=== PATIENT | male | born 1975 | race Caucasian/White ===

== ENCOUNTER 2021-12-23 10:53 | Outpatient (CLI) | payer SELFPAY, OTHER ==
--- NOTE | 2021-12-23 10:56 | MRI_ITS ---
STUDY: MRI LUMBAR SPINE WITHOUT CONTRAST REASON FOR EXAM: Male, 46 years old. Pain TECHNIQUE: Standardized fat and water weighted pulse sequences were obtained in the sagittal and axial planes. COMPARISON: X-ray 12/12/2021 FINDINGS: T12-L1: Normal endplates. Normal disc height, hydration and morphology. Normal bilateral facet joints. Normal central canal and bilateral lateral recesses. Normal bilateral intervertebral neural foramina. Normal lumbar lordosis. Mild levoscoliosis centered at L2. Normal conus medullaris that terminates at the T12. Slitlike appearance to the neural foramina are suggestive of congenital spinal stenosis (short pedicles). L1-2: Mild bilobed disc protrusion produces mild spinal stenosis and mild bilateral neural foraminal stenosis. L2-3: Mild bilateral facet hypertrophy and ligament flavum hypertrophy. 2 mm retrolisthesis of L2 on L3 with a mild broad disc protrusion with central annular tear produces moderate spinal stenosis with moderate bilateral lateral recess stenosis with abutment of the L3 nerve roots bilaterally and mild bilateral neural foraminal stenosis. L3-4: Mild broad disc protrusion produces mild spinal stenosis and mild bilateral neural foraminal stenosis. L4-5: Mild broad disc protrusion produces mild spinal stenosis, mild right neural foraminal stenosis and moderate left neural foraminal stenosis. L5-S1: Moderate sized central right paracentral disc protrusion produces moderate spinal stenosis with moderate lateral recess stenosis with abutment of the right S1 nerve root and mild bilateral neural foraminal stenosis. Normal visualized sacral ala. Normal visualized paraspinous soft tissue structures. MRI/Spine Lumbar (Routine) IMPRESSION: 1. 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 2. Mild levoscoliosis with degenerative disc disease as described above. Electronically Signed: Neeraj Hui MD at 12:16 EST ,
== END 2021-12-23 23:59 | disposition home or self-care (01) ==
PROVIDERS: PCP Family Medicine; Referring Provider Orthopaedic Surgery; Visit Provider Orthopaedic Surgery
DX: M51.27 Other intervertebral disc displacement, lumbosacral region (principal); R52 Pain, unspecified
CPT/HCPCS: 72148

== ENCOUNTER → 2022-06-07 | Outpatient (CLI) | payer SELFPAY, OTHER ==
--- NOTE | 2022-06-07 13:59 | MRI_ITS ---
STUDY: MRI LUMBAR SPINE WITH AND WITHOUT CONTRAST REASON FOR EXAM: Male, 46 years old. New onset of LEFT buttock and leg pain, prior surgery 2018 TECHNIQUE: Standardized fat and water weighted pulse sequences were obtained in the sagittal and axial planes. 20ml DOtarem via IV was administered for the contrast portion of the examination. COMPARISON: FINDINGS: T12-L1: Normal endplates. Normal disc height, hydration and morphology. Normal bilateral facet joints. Normal central canal and bilateral lateral recesses. Normal bilateral intervertebral neural foramina. Normal lumbar lordosis. There is no substantial scoliosis. Normal conus medullaris that terminates at the T12/L1. L1-2: No change in the mild bilobed disc protrusion which produces mild spinal stenosis and mild bilateral neural foraminal stenosis. L2-3: No change in the moderate broad disc protrusion which produces moderate spinal stenosis with moderate bilateral lateral recess stenosis with abutment of the L3 nerve roots bilaterally and mild bilateral neural foraminal stenosis. L3-4: No change in the mild broad disc protrusion which produces mild spinal stenosis and mild bilateral neural foraminal stenosis. L4-5: Status post left laminectomy. No change in the mild broad disc protrusion which produces mild spinal stenosis, mild right neural foraminal stenosis and moderate left neural foraminal stenosis with abutment of the left L4 nerve root laterally.. L5-S1: No change in the moderate broad disc protrusion asymmetric to the right which produces mild spinal stenosis with mild right lateral recess stenosis and mild bilateral neural foraminal stenosis. Normal visualized sacral ala. Normal visualized paraspinous soft tissue structures. There is no demonstrated abnormal enhancement. MRI/Spine Lumbar W/WO Contrast IMPRESSION: No change from 12/23/2021. Electronically Signed: Neeraj Hui MD at 15:35 EDT ,
== END | disposition home or self-care (01) ==
LOC: MRI 13:59
PROVIDERS: PCP Family Medicine; Visit Provider Orthopaedic Surgery
DX: M51.27 Other intervertebral disc displacement, lumbosacral region (principal)
CPT/HCPCS: 72158; A9575

== ENCOUNTER 2022-06-13 08:11 | Inpatient (IN) | payer OTHER, SELFPAY ==
--- NOTE | 2022-06-05 14:08 | EKG12_ITS ---
Test Reason : PRE-OP Blood Pressure : / mmHG Vent. Rate : 076 BPM Atrial Rate : 076 BPM P-R Int : 162 ms QRS Dur : 110 ms QT Int : 384 ms P-R-T Axes : 046 036 031 degrees QTc Int : 432 ms Normal sinus rhythm Normal ECG Confirmed by DANIEL CARDOZO MD ([id number]), clinical editor VIRI TAPIA ([id number]) on 06/06/2022 10:45:04 AM Referred By: PRASHANT Confirmed By:DANIEL CARDOZO MD
[2022-06-05 15:04] LABS: Absolute Lymphocyte Count 1.27 X10^3/uL (0.83-4.51); Basophil# 0.03 X10^3/uL; Basophil% 0.5 % (0-1); Eosinophil# 0.15 X10^3/uL; Eosinophils% 2.6 % (0-5); Hematocrit 38.1 % (40-54); Hemoglobin 12.7 g/dL (13.0-16.5); Lymphocyte # 1.27 X10^3/ul (0.83-4.51); Lymphocyte % 21.7 % (19-41); Mean Corp Hgb Conc 33.3 g/dL (32-36); Mean Corpuscular Hgb 29.3 pg (27.0-32.0); Mean Corpuscular Volume 87.8 fL (80-94); Mean Platelet Vol. 10.6 fl (6.2-12.0); Monocyte# 0.35 X10^3/uL; NRBC Flagged by Analyzer 0 % (0-5); Neutrophil # 4.03 X10^3/uL (2.7-7.7); Neutrophil % 68.9 % (47-70); Platelet Count 186 K/mm3 (150-450); RBC Distribution Width CV 11.9 % (11.6-14.6); RBC Distribution Width SD 38.1 fl (35.1-43.9); Red Blood Count 4.34 M/mm3 (4.6-6.2); White Blood Count 5.9 K/mm3 (4.4-11.0)
[2022-06-05 15:49] LABS: Anion Gap 5 (5-15); BUN 15 mg/dL (7-18); Calcium,Total 9.1 mg/dL (8.5-10.1); Chloride 108 mmol/L (98-107); EST Glomerular Filtration Rate 85 mL/min (>60); Est Glom Filt Rate - Afr Amer 103 mL/min (>60); Glucose 126 mg/dL (74-106); Potassium 3.7 mmol/L (3.5-5.1); Sodium Level 141 mmol/L (136-145)
[2022-06-06 09:08] LABS: HIV - WCH Non-Reactive (Nonreactive); Hepatitis B Surface Antibody Non-Reactive
[2022-06-06 09:51] LABS: Hepatitis C Antibody Nonreactive (Nonreactive)
[2022-06-08 12:59] LABS: Hepatitis A AB, Total Negative (Negative)
[2022-06-13] VITALS (14 sets, daily range): BP systolic 119–141; BP diastolic 42–97; PULSE 68–90; RESP 16–18; TEMP 36.1–37.3; O2SAT 93–100; BMI 31.6
[2022-06-13 06:20] LABS: Bedside Glucose 89 mg/dL (74-106)
--- NOTE | 2022-06-13 06:30 | RAD_ITS ---
STUDY: X-RAY - LUMBAR SPINE REASON FOR EXAM: Male, 46 years old. 360 FUSION L5-S1 WITH LAMINECTOMY, RIGHT TECHNIQUE: 1 view(s) of the lumbar spine were obtained. COMPARISON: None FINDINGS: A localization needle is seen anterior to the L4-L5 disc space level. A second needle is seen anterior to the L5-S1 disc space level. RAD/Spine 1 View Any Level IMPRESSION: Localization instruments as described. Electronically Signed: Geronimo Caraballo MD at 10:39 EDT ,
[2022-06-13] MEDS: Acetaminophen 500 MG Tablet 1000 MG PO (06:49)
[2022-06-13] MEDS: Lactated Ringers 1,000 ML 15 ML IV (06:51)
--- NOTE | 2022-06-13 07:30 | DISC_PTH ---
PATIENT: NAVEED SIMMS LOC: MS3 U#:[id number] AGE/SX: 46/M ROOM: [facility] [place] RE06/13/[address]: Dr. Jose Cartwright DO : 1975 BED: 1 DIS: 06/16/2022 SPEC #: [id number] RECD: 06/13/22 15:52 STATUS: JOSE REJacquelyn #: [id number] KENISHA: 06/13/22 07:[address]: Kan Regalado DEPT: SURGICAL PATHOLOGY RECD BY: Hali Holly ENTERED: 06/14/22 09:28 SP TYPE: DISC OTHR DR: MD Dr. Kan Reese DO Dr. Mark Tereletsky, DO Dr. Nicholas F Kotsonis, MD Tissues: Intervertebral disc, NOS Procedures: Surgery Specimen Level III Comments: @ Ordering doctor for SUIII edited from to @ by ROGERS at 06/14/22 1140 @ Submitting doctor edited from to @ by RGOOD at 06/14/22 1140 HEADER OPERATION: ERAS, 360 lumbar fusion L5-S1 with laminectomy PRE-OP DIAGNOSIS: Pain, herniated nucleus pulposus L5-S1, right TISSUE SUBMITTED: Spinal disc MICROSCOPIC DIAGNOSIS Spinal disc, laminectomy: Fragments of fibrocartilaginous tissue with focal degenerative changes. CESAR:taylor 06/15/2022 MICROSCOPIC DESCRIPTION Slides are reviewed. GROSS DESCRIPTION Received in fixative is one container labeled with the patient's name and designated spinal disc. The specimen consists of multiple fragments of conde, indurated tissue that in aggregate measure 6 x 6 x 2.5 cm. The largest piece measures 4 cm in greatest dimension. Brim Curler tissue is submitted in two cassettes. / CESAR:taylor 06/14/2022 TC:5 CPT: 56977
--- NOTE | 2022-06-13 08:07 | PCM.HP.BLA ---
History and Physical MR#: [id number] Acct: [id number] Name:NAVEED CHEUNG Rep #: [id number] : 1975 ? ? Provider: Dr. Kan Regalado, DO Age/Sex:? 46/M ? ? Location: [facility] [place] Status: Signed Intake Vital Signs ? 12/12/2214:34 Height 5 ft 9 in Weight: 211 lb 4 oz BMI 31.1 Intake Visit Reasons:?Lumbar spine Allergies No Known Allergies Allergy (Unverified 12/12/21 15:35) Medications HPI Lumbar spine Details: Parts of this documentation were recorded by a scribe, this documentation accurately reflects the service provided and the decisions made by me, Dr. Kan Regalado, DO 12/12/21 5911. NAVEED SIMMS is a 46 year old M NEW Pt here today for low back pain for 5-6 years. Pt states he has surgery on left side 3 years ago. Pt states most his pain is on the right side. Pt states he has radicular pain that radiates down right leg to his ankle and sometimes goes all the way to his toes. Pt denies numbness and tingling stating he has more of a burning sensation. Pt denies PT. Pt states he sometimes wears the brace he was given after his surgery which gives minimal pain relief. Pt states he has tried Aleve, Ibuprofen, and Tylenol which is ineffective. Pt states he has taken Percocet which provides some relief. Naveed is a most pleasant gentleman 46 years old has chief complaint of low back pain that radiates in his right buttocks down his right thigh and leg and what is described as an S1 dermatome.? 3 years ago he had laser surgery done for the left side apparently at L4-5.? It made his pain significantly better but he still has episodes of the left leg pain also but not as bad as the right is now.? 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 Thus he has to cut down trees all trees etc.? Sitting is worse than standing.? He denies any bowel or bladder dysfunction.? He denies history of unexplained weight loss night fever sweats or chills. Examination it is funny that he can bend forward and touch his toes without a great deal of difficulty it does bother him some he says but he can do it he is got more pain seemingly with extension that he does flexion and it seems to aggravate his leg pain.? He has excellent motor strength of all the major muscle groups of both lower extremities.? He has 2+ and equal patella and Achilles reflexes bilaterally.? He has no long tract signs.? Clonus is absent Babinski's are downgoing. Impression is that of herniated disc L5-S1.? We will order an MRI scan of the lumbar spine.? I will waive the contrast as he had this surgery with laser.? On the left side.? I will see him after the MRI scan and make further recommendations at that time. Ortho Exam General General: Yes no acute distress Neurologic: Yes alert and Yes oriented x3 Psychologic: Yes reasonable and appropriate Coding Level of Care Code Off vis,new,level 3 Diagnoses Pain? R52 Herniated nucleus pulposus, L5-S1, right? M51.27 Time Spent (min) 30 Assessment and Plan Assessment and Plan (1) Pain: ?Status:?Acute (2) Herniated nucleus pulposus, L5-S1, right:
[2022-06-13] MEDS: Cefazolin 2 GM in 0.9% Normal Saline 100 ML IV (08:10)
[2022-06-13] MEDS: THROMBIN (RECOMBINANT) 20,000 UNIT VIAL 20000 UNIT TOPICAL (08:35)
[2022-06-13] MEDS: Heparin 10,000 UNITS/10 ML Vial 10000 UNITS ×2 (08:35)
--- NOTE | 2022-06-13 11:15 | RAD_ITS ---
STUDY: X-RAY - LUMBAR SPINE REASON FOR EXAM: Male, 46 years old. 360 FUSION L5-S1 W/ LAMINECTOMY, RIGHT -- IMAGE #2 TECHNIQUE: 1 view(s) of the lumbar spine were obtained. COMPARISON: None FINDINGS: Patient is status post anterior fusion with disc placement at the L5-S1 level. RAD/Spine 1 View Any Level IMPRESSION: Anterior fusion with prosthetic disc placement at the L5-S1 level. Electronically Signed: Geronimo Caraballo MD at 12:10 EDT ,
--- NOTE | 2022-06-13 11:44 | OP.PCM_ITS ---
Report of Operation Description of Surgical Findings:: Preoperative diagnosis: Herniated disc L5-S1 Postoperative diagnosis: The same Procedure: #1 anterior lumbar interbody fusion L5-S1 CPT code 99104 #2 anterior spine plate L5-S1 CPT code 82067/59 #3 insertion of interbody cage L5-S1 CPT code 12214 Co-surgeon's: Dr. Regalado and Dr. Araujo assistant hall director: Carito Richardson NP Anesthesia: General endotracheal by [facility] EBL: Less than 100 cc Drains: None Complications: None Procedure: Patient was taken to the OR where he was placed in the supine position on the operating table he was then placed under general endotracheal anesthesia a Ohara catheter was inserted. Neuro monitoring placed their leads on the patient. The abdomen was then prepped and draped in standard fashion. The surgical approach is then described in Dr. Araujo's operative summary. Once we had good exposure at L5-S1 I then removed the anterior annulus using a 10 blade on a long handle. Then used pituitary rongeurs to remove more nucleus from within the disc space all the way back towards the back of the disc space. I then used ring curettes both straight and angled to remove the cartilage off both endplates above and below that is the bottom of 5 and the top of S1. I then used a rock to flatten the edges on the sides for a better fit for the cage. We did a trial with both the 12 and then a 14 mm 35 x 25 mm 8 degree cage. We decided on the 14 mm high cage that was 25 x 35 mm and 8 degree angle. I then used the broach to broach the space and get good bleeding endplate. Then filled the cage with demineralized bone matrix that was in the form of sponge. Noted earlier we took 60 cc of fluid from the patient's iliac crest handed off to the surgical instrument technician and she was able to separate the stem cells from the rest of the cells and concentrate the stem cells about 10 times. We then soaked the DBM inside the cage with the patient's own stem cells I then tamped into place and countersunk it a couple of millimeters. We then used a 27mm plate that was the one for L5-S1. It was centered and then a punch the first of 4 holes with an awl followed by insertion of 30 mm screws at the top and 25 mm screws into S1. The locking mechanisms were then activated. We then placed amniotic membrane directly over the plate to prevent adhesion up from the vessels surrounding it to the plate. The closure is then described in Dr. Araujo's operative summary. As is the end of operative summary on Alejandro Marmolejo. This is Dr. Regalado dictating.
--- NOTE | 2022-06-13 11:47 | PCM.OPRPT ---
Report of Operation Date of Procedure: 06/13/22 Pre-Operative Diagnosis: Lumbar spondylolisthesis Post-Operative Diagnosis: Same Surgery/Procedure Performed:: ALIF L5-S1 Surgeon: Kan Regalado watch train assembler: None (Co-Surgeon: Dr. Lencho Winchester) Type of Anesthesia: General Drains: None Estimated Blood Loss (mL): 75 cc Description of Procedure: After obtaining informed consent, the patient was brought to the operating room placed in the supine position. General anesthesia was administered. Lower chest, abdomen, bilateral groins and bilateral thighs were prepped and draped in a sterile fashion. After performing an appropriate timeout, Dr. Regalado's nurse practitioner obtained bone marrow from the right iliac crest. I then made a transverse incision in the left lower quadrant approximately 2 fingerbreadths above the pubic bone and aimed towards the ASIS. Incision was deepened through the subcutaneous tissue down to the fascial layer. Fascia was incised past midline and laterally. I then freed the rectus muscle from the fascia superiorly and inferiorly. I then developed a retroperitoneal plane laterally. Was able to pull the peritoneal contents across the psoas. I was able to identify the left common iliac artery. It was carefully dissected and retracted laterally. This allowed me to visualize the common iliac vein. Any medial branches were ligated and divided. I was now able to sweep these vessels laterally as well. The L5-S1 disc space was then carefully dissected free of any lymph node tissue and any other small branches were ligated and divided. I was then able to retract the peritoneal contents further to the patient's right giving great exposure to the disc space. Needle was placed into the disc space. X-ray was obtained confirming placement at the L5-S1. Dr. Regalado then scrubbed in and performed a discectomy. He then placed a cage and an anterior plate that was held in place by 4 screws. The peritoneal contents were then released as well as the retractors holding the vessels laterally. There was no significant bleeding. X-ray confirmed excellent placement of the cage and plate and screws. Anterior fascia was then reapproximated with Stratus fix suture. Vicryl suture was used to reapproximate the subcutaneous tissue. Skin was brought together with a 4-0 Monocryl in a subcuticular fashion. Dry sterile dressing was placed over the left lower quadrant incision. Patient was then flipped into the prone position for the posterior approach. Please see Dr. Regalado's operative dictation for this part of the procedure. Co-Surgeon: Dr. Lencho Winchester Complications None
--- NOTE | 2022-06-13 13:00 | RAD_ITS ---
STUDY: X-RAY - LUMBAR SPINE REASON FOR EXAM: Male, 46 years old. 360 FUSION L5-S1 -- IMAGE 3 TECHNIQUE: 1 view(s) of the lumbar spine were obtained. COMPARISON: Comparison is made with prior study done earlier today. FINDINGS: The localization instrument is seen posterior to the L4-L5 disc space level. RAD/Spine 1 View Any Level IMPRESSION: The localization instrument is seen posterior to the L4-L5 disc space level. Electronically Signed: Geronimo Caraballo MD at 14:45 EDT ,
--- NOTE | 2022-06-13 15:09 | OP.PCM_ITS ---
Report of Operation Description of Surgical Findings:: Preoperative diagnosis: Herniated disc L5-S1 Postoperative diagnosis: The same Procedures: #1 posterior fusion L5-S1 CPT code 14609 #2 lumbar laminectomy L5-S1 CPT code 48245 #3 internal fixation L5-S1 CPT code 02471 Surgeon: Dr. Regalado assistant professor of psychology: Carito Richardson NP Anesthesia: General endotracheal administered by [facility] EBL: Under 120 cc including both the anterior and this posterior surgery Drains: None Complications: None Procedure: Once the anterior surgery was completely done and the abdomen closed the patient was then turned over onto the prone position on the Harsh frame. After appropriate positioning with care to protect his bony prominences his genitalia the brachial plexus bilaterally the ulnar nerves of both elbows and the facial features and cervical spine the back was prepped and draped standard fashion. Then made a longitudinal incision in the low part of his back. Subcutaneous tissues were incised length of the skin incision. I then opened the lumbar fascia to the right of the spinous processes and identified a space between the spinous processes it was marked and an x-ray was taken the demonstrated that it was at 4 5 so we simply moved down 1 level to L5-S1. I then elevated the paravertebral muscles of the lamina of S1 and the lamina of L5. Using cautery I did same thing on the right side elevating it and then putting the super slider retractors in place. First we performed laminectomy by release ligamentum flavum off the underside of the lamina of L5 and the laminectomy was carried out with 45 degree Kerrison rongeurs. I then remove the ligamentum flavum flavum in retrograde fashion with Kerrison rongeurs. I then checked the S1 nerve root noted it was a little swollen but the pressure was alr primo off of it as the decompression had occurred from the anterior portion. I also checked the foramen it was found to be open both anteriorly and posteriorly around the S1 nerve root. I then prepared for the fusion I was I burred the lamina and spinous processes of L5 and S1 on both sides. Note that the SPARC was a soaked the patient's own stem cells and then placed in both gutters. This is after burring the area. Then use the interspinous bone placed it between the spinous process of S1 and L5. We then applied the internal fixation device and activated the locking mechanisms. He had very little blood loss so we did not put a drain in place. We then closed the lumbar fascia using figure of 8 suture with #1 Vicryl. We then closed the subcutaneous tissues in layers with both 0 Vicryl in running fashion and 2-0 Vicryl in layers. We then closed the skin with skin clips. Sterile dressings were then applied. The patient was then recovered in the OR was moved to his hospital bed and taken recovery in satisfactory condition. There is the end of operative summary on Alejandro Marmolejo. This is Dr. Regalado dictating.
[2022-06-13] MEDS: Lactated Ringers 1,000 ML 100 ML IV ×2 (16:19→18:46)
--- NOTE | 2022-06-13 17:56 | PCM.PN.HOSP ---
Subjective Subjective 46-year-old male presents to the hospital for an elective back surgery secondary to a herniated disc between L5 and S1. He is status post a posterior fusion as well as lumbar laminectomy and internal fixation. We were consulted for medical management, he does not take any medications. Objective Data Objective Data Vital Signs: Vital Signs Temp Pulse Resp BP Pulse Ox O2 Del Method O2 Flow Rate 98.8 F 76 16 135/42 H 93 Nasal Cannula 4 06/13/22 17:19 06/13/22 17:19 06/13/22 17:19 06/13/22 17:19 06/13/22 17:19 06/13/22 17:19 06/13/22 16:47 Oxygen Flow Rate (L/min) 4 Oxygen Delivery Method Nasal Cannula Weight: 214 lb 1.102 oz Body Mass Index (BMI) 31.6 Intake & Output: Intake and Output for Last 24 Hours 06/12/22 06/13/22 06/14/22 03:59 03:59 03:59 Intake Total 2212 / 2212 Output Total 1400 / 1400 Balance 812 / 812 Lab / Micro Data Result Diagrams: 06/05/22 14:27 06/05/22 14:27 Labs: Laboratory Results - last 24 hr 06/13/22 06:03: POC Glucose 89 Micro: Microbiology 06/05/22 14:27 Swab (Method) Nasal Screen MRSA/MSSA - Final Radiography Diagnostic Testing: Radiology Impression Spine X-Ray 06/13/22 11:15 IMPRESSION: Anterior fusion with prosthetic disc placement at the L5-S1 level. Electronically Signed: Geronimo Caraballo MD at 12:10 EDT , Spine X-Ray 06/13/22 13:00 IMPRESSION: The localization instrument is seen posterior to the L4-L5 disc space level. Electronically Signed: Geronimo Caraballo MD at 14:45 EDT , Physical Exam Const alert, oriented x3 and no apparent distress General Appearance: cooperative HEENT normocephalic and moist oral mucous membranes Eyes PERRL, EOMs intact bilaterally and conjunctivae normal Neck supple and no JVD Resp normal respiratory effort, no retractions, no use of accessory muscles and clear to auscultation bilaterally Auscultation: Negative for crackles, rales, rhonchi or wheezes Cardio regular rate, regular rhythm, S1 normal heart sound, S2 normal heart sound and no murmurs GI soft to palpation, non-tender and non-distended; Negative for hepatosplenomegaly Extremity no clubbing, cyanosis or edema Skin no rashes or lesions noted Skin Narrative: Dressing is CDI Neuro no focal motor deficits and no sensory deficits noted Psych affect normal Appearance: appropriate Assessment & Plan Assessment/Plan (1) Herniated nucleus pulposus, L5-S1, right: PLAN: Plan 1. Herniated L5-S1 status post posterior fusion, lumbar laminectomy, internal fixation on 06/13/2022 ? Pain management per primary ? DVT prophylaxis per primary ? PT/OT for evaluation and discharge planning ? Vital signs appear to be stable and he denies any significant pain at this time. ? Labs from 06/05/2022 were reviewed and he does not take any medications at home ? We will continue to follow peripherally DVT: SCDs Charges/Coding Visit Charges Inpatient E&M: 18566 Subs Hosp L2
[2022-06-13] MEDS: Cefazolin 1 GM/50 ML BAG IV (18:29)
[2022-06-13] MEDS: Ensure Surgery 237 ML LIQUID PO (18:29)
[2022-06-13] MEDS: oxyCODONE 5 MG Tablet PO (18:44)
[2022-06-13] MEDS: diazePAM 5 MG Tablet PO (18:45)
[2022-06-14] VITALS (12 sets, daily range): BP systolic 87–137; BP diastolic 52–76; PULSE 62–105; RESP 16–18; TEMP 36.3–37.2; O2SAT 94–99
[2022-06-14] MEDS: Cefazolin 1 GM/50 ML BAG IV (00:41)
[2022-06-14] MEDS: oxyCODONE 5 MG Tablet PO ×4 (02:15→21:40)
[2022-06-14] MEDS: diazePAM 5 MG Tablet PO (02:15)
--- NOTE | 2022-06-14 08:45 | NURSING ---
Pt assisted to chair by Jacinto KEYS, this nurse called into room as patient stated he felt like he was going to pass out. Pt assisted to recliner and feet raised in chair. Pt c/o abd pain and back pain. BP 96/60, pulse 62. After sitting, patient reported less feelings of going to pass out.
[2022-06-14] MEDS: Ensure Surgery 237 ML LIQUID PO ×3 (09:55→17:44)
--- NOTE | 2022-06-14 10:20 | CASEMGMT ---
MARY CARMEN HATFIELD Face to Face with patient for initial transition planning/care coordination assessment. MARY CARMEN HATFIELD introduced self and role at [facility]. Patient sitting in chair, alert and oriented, at bedside. Patient willing to participate in assessment and is able to answer all questions appropriately. Care providers, pharmacy, and demographics verified. Patient wishes to discharge home, denies need for home health at this time. Patient states he has no further needs or concerns at this time. CM to follow for discharge planning needs that may arise. PCP: Reese Acharya Specialists: angela Regalado Pharmacy: [facility]; [facility] retail at discharge. [place] [facility] [place]: [place] Living Will/HPOA: none LNOK: Living Arrangements: Patient lives with in a 3 story home with bed and bath on main level of home. 2 steps and railing to enter the home. Patient states he was independent and able to ambulate stairs prior to surgery Transportation: Driving service DME/HHC: Patient states he has crutches and higher toilet at home. MARY CARMEN HATFIELD updated regarding [facility] warehouse for possible walker, 's father operates warehouse. Patient denied previous HHC. Disposition Plan: Patient to discharge home with family support and follow-up plans in place. Gabby MORALES, RN, CM
[2022-06-14] MEDS: Lactated Ringers 1,000 ML 100 ML IV (11:10)
--- NOTE | 2022-06-14 11:56 | PCM.PN.ORT ---
Subjective Subjective Alejandro was seen this morning around 930. He states that overall his abdomen hurts him more than his low back. Yesterday he actually walked down the hallway a couple of times. Today however he does not feel as good as he did yesterday. I explained to him that that is not unusual. He is afebrile at this time. The pain medication is just barely been holding him. Explained to him however that we always worry about things like blood pressure from too much opioid. Nonetheless I tried to reassure him that it usually takes about 3 days to turn the corner. Neurologically he is intact. I will see him again tomorrow on rounds. Objective Data Objective Data Vital Signs: Vital Signs Temp Pulse Resp BP Pulse Ox O2 Del Method O2 Flow Rate 98.3 F 105 H 18 118/70 94 Room Air 4 06/14/22 08:45 06/14/22 10:45 06/14/22 08:45 06/14/22 10:45 06/14/22 09:04 06/14/22 09:04 06/13/22 19:33 Oxygen Flow Rate (L/min) 4 Oxygen Delivery Method Room Air Weight: 214 lb 8.156 oz Body Mass Index (BMI) 31.6 Intake & Output: Intake and Output for Last 24 Hours 06/12/22 06/13/22 06/14/22 23:59 23:59 23:59 Intake Total 3307 / 3307 1473.33 / 1473.33 Output Total 1550 / 2550 2225 / 2225 Balance 1757 / 757 -751.67 / -751.67 Lab / Micro Data Result Diagrams: 06/05/22 14:27 06/05/22 14:27 Micro: Microbiology 06/05/22 14:27 Swab (Method) Nasal Screen MRSA/MSSA - Final Radiography Diagnostic Testing: Radiology Impression Spine X-Ray 06/13/22 06:30 IMPRESSION: Localization instruments as described. Electronically Signed: Geronimo Caraballo MD at 10:39 EDT , Spine X-Ray 06/13/22 11:15 IMPRESSION: Anterior fusion with prosthetic disc placement at the L5-S1 level. Electronically Signed: Geronimo Caraballo MD at 12:10 EDT , Spine X-Ray 06/13/22 13:00 IMPRESSION: The localization instrument is seen posterior to the L4-L5 disc space level. Electronically Signed: Geronimo Caraballo MD at 14:45 EDT ,
[2022-06-14] MEDS: 0.9% Normal Saline 1,000 ML 999 ML IV (12:27)
[2022-06-14] MEDS: Acetaminophen 500 MG Tablet 1000 MG PO ×2 (12:27→21:27)
--- NOTE | 2022-06-14 18:34 | PCM.PN.HOSP ---
Subjective Subjective Patient was seen and examined today, he was orthostatic at one time today with a low blood pressure on standing and ambulating, I gave him a fluid bolus, patient states that he has no symptoms of dizziness or lightheadedness at this time. Objective Data Objective Data Vital Signs: Vital Signs Temp Pulse Resp BP Pulse Ox O2 Del Method O2 Flow Rate 98.9 F 96 18 120/76 99 Room Air 4 06/14/22 15:45 06/14/22 15:45 06/14/22 15:45 06/14/22 15:45 06/14/22 15:45 06/14/22 15:45 06/13/22 19:33 Oxygen Flow Rate (L/min) 4 Oxygen Delivery Method Room Air Weight: 97.3 kg Body Mass Index (BMI) 31.6 Intake & Output: Intake and Output for Last 24 Hours 06/12/22 06/13/22 06/14/22 23:59 23:59 23:59 Intake Total 3307 / 3307 3673.33 / 3673.33 Output Total 1550 / 2550 3825 / 3825 Balance 1757 / 757 -151.67 / -151.67 Lab / Micro Data Result Diagrams: 06/05/22 14:27 06/05/22 14:27 Micro: Microbiology 06/05/22 14:27 Swab (Method) Nasal Screen MRSA/MSSA - Final Radiography Diagnostic Testing: Radiology Impression Spine X-Ray 06/13/22 06:30 IMPRESSION: Localization instruments as described. Electronically Signed: Geronimo Caraballo MD at 10:39 EDT , Spine X-Ray 06/13/22 11:15 IMPRESSION: Anterior fusion with prosthetic disc placement at the L5-S1 level. Electronically Signed: Geronimo Caraballo MD at 12:10 EDT , Spine X-Ray 06/13/22 13:00 IMPRESSION: The localization instrument is seen posterior to the L4-L5 disc space level. Electronically Signed: Geronimo Caraballo MD at 14:45 EDT , Physical Exam Const alert, oriented x3, no apparent distress, average body habitus and healthy appearing General Appearance: cooperative, well kempt and well developed Orientation / Consciousness: awake, oriented to person, oriented to place and oriented to time HEENT normocephalic, head/scalp atraumatic and moist oral mucous membranes Eyes PERRL, EOMs intact bilaterally and conjunctivae normal Neck supple, no JVD, thyroid normal and no carotid bruits General: trachea midline Resp normal respiratory effort, no retractions, no use of accessory muscles and clear to auscultation bilaterally Auscultation: Negative for rales, rhonchi or wheezes Cardio regular rate, regular rhythm, S1 normal heart sound, S2 normal heart sound, no murmurs, no rub and no gallops GI normal to inspection, nondistended, normoactive bowel sounds, soft to palpation, non-tender and non-distended Extremity normal to inspection and no clubbing, cyanosis or edema Skin no rashes or lesions noted General Skin Exam: no breakdown Neuro oriented x3, CN's II-XII intact bilaterally, moves all extremities, no focal motor deficits and no sensory deficits noted Sensorium / Orientation: awake and alert Speech: speech normal Psych affect normal Assessment & Plan Assessment/Plan (1) Herniated nucleus pulposus, L5-S1, right: PLAN: Plan 1. Herniated disc [id number] remains medically stable at this time, continue present care Charges/Coding Visit Charges Inpatient E&M: 56866 Subs Hosp L1
[2022-06-14] MEDS: Zolpidem Tartrate 5 MG Tablet PO (21:27)
[2022-06-15 02:05] VITALS: BP 121/64; PULSE 83; RESP 16; TEMP 36.8; O2SAT 96
[2022-06-15] MEDS: oxyCODONE 5 MG Tablet PO ×5 (02:08→22:59)
[2022-06-15 06:42] VITALS: BP 115/59; PULSE 92; RESP 18; TEMP 37.7; O2SAT 95
[2022-06-15] MEDS: Acetaminophen 500 MG Tablet 1000 MG PO ×3 (06:43→21:37)
[2022-06-15] MEDS: Ensure Surgery 237 ML LIQUID PO ×3 (09:05→18:08)
[2022-06-15 09:46] VITALS: BP 122/72; PULSE 80; RESP 16; TEMP 36.8; O2SAT 96
--- NOTE | 2022-06-15 13:28 | PCM.PN.ORT ---
Subjective Subjective Postop day #2 postop day #2 postop day #2 Objective Data Objective Data Vital Signs: Vital Signs Temp Pulse Resp BP Pulse Ox O2 Del Method O2 Flow Rate 98.3 F 80 16 122/72 H 96 Room Air 4 06/15/22 09:46 06/15/22 09:46 06/15/22 09:46 06/15/22 09:46 06/15/22 09:46 06/15/22 09:46 06/13/22 19:33 Oxygen Flow Rate (L/min) 4 Oxygen Delivery Method Room Air Weight: 214 lb 8.156 oz Body Mass Index (BMI) 31.6 Intake & Output: Intake and Output for Last 24 Hours 06/13/22 06/14/22 06/15/22 23:59 23:59 23:59 Intake Total 3307 / 3307 4617.08 / 4617.08 Output Total 1550 / 2550 3825 / 4325 1500 / 1500 Balance 1757 / 757 792.08 / 292.08 -1500 / -1500 Lab / Micro Data Result Diagrams: 06/05/22 14:27 06/05/22 14:27 Micro: Microbiology 06/05/22 14:27 Swab (Method) Nasal Screen MRSA/MSSA - Final
[2022-06-15 16:15] VITALS: BP 134/78; PULSE 72; RESP 14; TEMP 36.8; O2SAT 98
[2022-06-15 18:43] VITALS: BP 116/68; PULSE 86; RESP 16; TEMP 36.7; O2SAT 98
[2022-06-15] MEDS: Zolpidem Tartrate 5 MG Tablet PO (21:37)
[2022-06-15 22:59] VITALS: BP 117/69; PULSE 84; RESP 16; TEMP 37.1; O2SAT 96
[2022-06-16 02:58] VITALS: BP 137/72; PULSE 83; RESP 16; TEMP 36.8; O2SAT 98
[2022-06-16] MEDS: oxyCODONE 5 MG Tablet PO ×2 (03:03→12:50)
[2022-06-16] MEDS: 0.9% Saline Lock 10 ML Syringe IV (03:03)
[2022-06-16] MEDS: Acetaminophen 500 MG Tablet 1000 MG PO (05:41)
[2022-06-16 07:35] VITALS: O2SAT 97
[2022-06-16] MEDS: Ensure Surgery 237 ML LIQUID PO ×2 (08:49→12:53)
[2022-06-16 09:00] VITALS: BP 124/74; PULSE 82; RESP 16; TEMP 36.7; O2SAT 96
--- NOTE | 2022-06-16 11:26 | DCINST_ITS ---
Discharge Instructions Diet Discharge Diet: - (As discussed with Dr. Regalado) Activity Discharge Activity: May Shower (Starting Sunday) and - (As discussed with Dr. Regalado) Weight Bearing Status: Full weight bearing Dressing / Incision Call your doctor if your incision/area has: Continuous Slow Oozing, Sudden Increased Bleeding, Increased Pain/ Swelling and Foul Smelling Discharge Call your doctor if you observe: Fever of 101 or Higher, Numbness or Tingling, Inability to urinate, Shortness of breath, Chest pain, Calf discomfort and Uncontrolled pain Remove Dressing in: 2 days (Take post-op dressing off Sunday. Starting Sunday cleanse incision site with antibacterial soap and warm water, pat dry. Do not replace dressing leave it open to air. ) Cleanse incision/area with: Soap & Water Follow Up Care Please Follow Up With: Kan Regalado DO When: 2 weeks post-op Test Results: Test results from this visit will be discussed in further detail at your follow- up appointment, if applicable. Discharge Plan Admission Admit Date/Time: 06/13/22 08:11 Attending Provider: Jose Cartwright Primary Care Provider: Duran Acharya Consulting Providers: Mark Burroughs Marcus Discharge Orders/Prescriptions Prescriptions: No Action oxycodone 5 mg tablet 5 mg PO Q6H PRN (Reason: pain) 14 Days Qty: 60 0RF Referrals / Follow Up: Duran Acharya MD [Primary Care Provider] - Disposition Disposition (needs filled in before D/C Order can be placed): Home, Self Care
--- NOTE | 2022-06-16 11:43 | PCM.DC.SUM ---
Providers Date of Admission: 06/13/22 Date of Discharge: 06/16/22 Primary Care Physician: Dr. Duran Acharya MD Consultations 06/13/22 15:58 Consult: Hospitalist Routine Consulting Provider: Mark Burroughs Reason for Consult: Medical Management EMERGENT Consult: No MD Notified: Yes Date Notified: 06/13/22 Time Notified: 17:20 Method of Notification: Text Reason For Visit: 360 LUMBAR FUSION L5-S1 Diagnosis Discharge Diagnosis (1) Herniated nucleus pulposus, L5-S1, right: Status: Acute Code(s): M51.27 - Other intervertebral disc displacement, lumbosacral region Medications at Discharge Home Medications oxycodone 5 mg tablet 5 mg PO Q6H PRN pain 2 weeks #60 tabs 06/16/22 Hospital Course Summary of Care Provided Hospital Course: Mr. Marmolejo was admitted on 06/13/2022. On the date of admission he underwent a 360 fusion with lumbar laminectomy at L5-S1. He tolerated the procedure quite well. He has good bowel sounds today and has been having flatulence. Upon inspection his dressings are dry. He is neurologically intact. His abdomen is soft. He reports that his right leg pain has completely resolved. He states that he has had some intermittent left leg pain. He is very pleased with his apparent outcome. He has been walking quite well in the hallways. He has been taking oxycodone for pain. He states that his pain is a 6 out of 10 currently. However, he has not had any pain medication since 3 AM today. He was given a postop protocol regarding his activities from Dr. Regalado. He has an appointment to follow-up 2 weeks postop in the office with Dr. Regalado. He was given a prescription for 5 mg of oxycodone that he can take every 6 hours as needed. Discussed he should remove the dressings on Sunday and on Sunday he may begin showering. Discussed he should cleanse the incision sites with antibacterial soap and warm water and pat the area dry. He does not need to redress the incisions, they should be open to air. Weight / BMI Weight Weight: 214 lb 8.156 oz Body Mass Index (BMI) 31.6 ABG / Lab / Microbiology Data Result Diagrams: 06/05/22 14:27 06/05/22 14:27 Microbiology: Microbiology 06/05/22 14:27 Swab (Method) Nasal Screen MRSA/MSSA - Final D/C Instructions Discharge Diet: - (As discussed with Dr. Regalado) Weight Bearing Status: Full weight bearing Call your doctor if your incision/area has: Continuous Slow Oozing, Sudden Increased Bleeding, Increased Pain/ Swelling and Foul Smelling Discharge Call your doctor if you observe: Fever of 101 or Higher, Numbness or Tingling, Inability to urinate, Shortness of breath, Chest pain, Calf discomfort and Uncontrolled pain Cleanse incision/area with: Soap & Water Please Follow Up With: Kan Regalado DO When: 2 weeks post-op Meaningful Use Info Meaningful Use Diagnoses (Choose all that apply): None applicable Discharge Plan Admission Admit Date/Time: 06/13/22 08:11 Attending Provider: Jose Cartwright Primary Care Provider: Duran Acharya Consulting Providers: Mark Burroughs Marcus Discharge Orders/Prescriptions Prescriptions: No Action oxycodone 5 mg tablet 5 mg PO Q6H PRN (Reason: pain) 14 Days Qty: 60 0RF Referrals / Follow Up: Duran Acharya MD [Primary Care Provider] - Disposition Disposition (needs filled in before D/C Order can be placed): Home, Self Care
[2022-06-16 14:27] VITALS: BP 117/68; PULSE 82; RESP 16; TEMP 36.7; O2SAT 96
== END 2022-06-16 14:29 | disposition home or self-care (01) | DRG 460 ==
LOC: ACINP 08:59 → MS3 15:58
PROVIDERS: Anesthesiology; Admitting Provider Orthopaedic Surgery; PCP Family Medicine; Referring Provider Orthopaedic Surgery; Visit Provider Internal Medicine
PROC: 0SG30A0 Fusion of Lumbosacral Joint with Interbody Fusion Device, Anterior Approach, Anterior Column, Open Approach (ICD-10-PCS; principal; 2022-06-13 07:00)
DX: M51.27 Other intervertebral disc displacement, lumbosacral region (principal); I95.1 Orthostatic hypotension
CPT/HCPCS: 36415; 72020; 80048; 82962; 83735; 85025; 86703; 86706; 86708; 86803; 87081; 88304; 93005; 97110; 97116; 97162; 97530; 99251; C1713; J7030; J7120; A4216; G0463; J2405; J3475